=== PATIENT | female | born 2000 | race Caucasian/White ===

== ENCOUNTER → 2020-01-22 11:42 | Outpatient (BNVA) | payer MEDICAID, SELFPAY | PROVIDERS: Visit Provider Nurse Practitioner | DX: J02.9 Acute pharyngitis, unspecified (principal); R05 Cough | CPT/HCPCS: 87804 ==

== ENCOUNTER 2020-08-20 21:37 | Emergency (ER) | payer MEDICAID, SELFPAY ==
[2020-08-20 21:43] VITALS: BP 135/81; PULSE 71; RESP 16; TEMP 36.5; O2SAT 100; BMI 19.5
--- NOTE | 2020-08-20 21:52 | W.ED.TRAUMA ---
HPI - Trauma General: Chief Complaint: Trauma Stated Complaint: foot injury Time Seen by Provider: 08/20/20 21:50 Source: patient Mode of arrival: ambulatory Limitations: no limitations History of Present Illness: HPI narrative: Patient was getting out of the shower and in the shower door came back and caught her against her left inner heel area. Patient has a 2 cm laceration to the medial left heel area. Review of Systems General: Reports: 10 or more systems reviewed and unremarkable except in HPI and below Skin/Breast: Reports: other (Left heel laceration) PFS ED PFSH: Social History (Updated 01/22/20 @ 11:38 by Radhika Kenndey LPN) Smoking and tobacco status: never smoked Female Reproductive History: Date of last menstrual period: 08/04/20 Physical Exam Const: COMMON NORMALS: no acute distress and patient oriented x3 GENERAL APPEARANCE: cooperative HENMT: COMMON NORMALS: normocephalic and Normal external nose present HEAD & SCALP: normal to inspection and normocephalic NOSE: Normal external nose present MOUTH: Normal oral and palatal mucosa present Eye: GENERAL EYE: appearance normal, both eyes and all related structures Neck/C-Spine: COMMON NORMALS: full ROM Chest: COMMONS NORMALS: normal inspection of the chest Resp: COMMON NORMALS: normal respiratory effort EFFORT & INSPECTION: Yes able to speak in complete sentences Cardio: COMMON NORMALS: regular rate and regular rhythm RATE: regular rate RHYTHM: regular rhythm GI: COMMON NORMALS: non-tender Back/Pelvis: COMMON NORMALS: thoracic and lumbar spine normal to inspection Extremity: COMMON NORMALS: normal to inspection Neuro: COMMON NORMALS: patient oriented x3 and moves all extremities Psych: COMMON NORMALS: mental status grossly normal and cooperative Skin: NARRATIVE SKIN EXAM: 2 cm laceration to left heel, Procedures Laceration Laceration 1: Site: lower extremity (left heel) Side (If applicable): left Size (cm): 2 Description: linear Depth: simple, single layer Local Anesthetic: lidocaine 1% Amount of anesthesia used (mL): 4 Pre-repair: wound explored Skin layer closed with: nylon Size (cm): 4-0 Number of sutures: 3 Technique: simple, interrupted MDM - Trauma MDM Narrative: Medical decision making narrative: Patient comes in with injury to the left heel. On exam there is a 2 cm laceration to the left inner heel. No signs of foreign body was noted. No tendon injury was noted. There was some mild ecchymosis to the surrounding tissue. Differential diagnosis includes contusion, laceration, need for prophylaxis tetanus. Patient's tetanus shot was up-to-date. Wound was closed with 3 sutures. Patient tolerated well. Patient was covered cephalexin. Discharge Plan Discharge Patient Disposition: Home Clinical Impression: Laceration of heel without complication Qualifiers: Encounter type: initial encounter Laterality: left Qualified Code(s): S91.312A - Laceration without foreign body, left foot, initial encounter Condition: Stable Prescriptions: New cephalexin 500 mg tablet 500 mg PO BID 7 Days Qty: 14 RF: 0 No Action control PO RF: 0 Discharge Orders: Discharge Order (Routine); Ordered 08/20/20 Ordered By: Rhett David Discharge Diet: Usual diet Discharge Activity: Increase activity as tolerated Patient Instructions: Suture Care (ED) Activity Restrictions/Additional Instructions: Home and rest. Keep wound clean and dry. Take antibiotics as directed. Use acetaminophen or ibuprofen for pain. Follow-up with primary care for suture removal in 7 to 10 days. Return to the emergency department for new concerns. Coding Level of Care Code ED Supervisor Solder Making for [place] Exam Comprehensive
[2020-08-20] MEDS: cephALEXin 500 mg Capsule PO (21:57)
[2020-08-20] MEDS: lidocaine 1% INJ 20 mL INJECTION (21:57)
== END 2020-08-20 22:15 | disposition home or self-care (01) ==
PROVIDERS: Emergency Provider Nurse Practitioner Family
DX: S91.312A Laceration without foreign body, left foot, initial encounter (principal); W51.XXXA Accidental striking against or bumped into by another person, initial encounter
CPT/HCPCS: 12001; 12345; 99282; 99283

== ENCOUNTER → 2020-11-24 11:30 | Outpatient (BNVA) | payer MEDICAID, SELFPAY | PROVIDERS: Visit Provider Obstetrics & Gynecology | DX: Z32.01 Encounter for pregnancy test, result positive (principal) | CPT/HCPCS: 81025 ==

== ENCOUNTER → 2020-11-30 16:00 | Outpatient (BNVA) | payer MEDICAID, SELFPAY | PROVIDERS: Visit Provider Obstetrics & Gynecology | DX: O20.9 Hemorrhage in early pregnancy, unspecified (principal) | CPT/HCPCS: 84702; 86850; 86900 ==

== ENCOUNTER → 2021-01-08 15:14 | Outpatient (BNVA) | payer MEDICAID, SELFPAY | PROVIDERS: Visit Provider Obstetrics & Gynecology | DX: Z34.90 Encounter for supervision of normal pregnancy, unspecified, unspecified trimester (principal); Z3A.00 Weeks of gestation of pregnancy not specified | CPT/HCPCS: 80307; 82950; 84315; 85027; 86592; 86762; 86803; 86850; 86900; 87086; 87340; 87806 ==

== ENCOUNTER → 2021-01-18 10:32 | Outpatient (BNVA) | payer MEDICAID, SELFPAY | PROVIDERS: Visit Provider Obstetrics & Gynecology | DX: O99.341 Other mental disorders complicating pregnancy, first trimester (principal); F41.9 Anxiety disorder, unspecified; F32.9 Major depressive disorder, single episode, unspecified; Z14.1 Cystic fibrosis carrier; Z3A.12 12 weeks gestation of pregnancy; O09.299 Supervision of pregnancy with other poor reproductive or obstetric history, unspecified trimester | CPT/HCPCS: 84315; 87491; 87591; 88175 ==

== ENCOUNTER 2021-02-05 07:21 | Emergency (ER) | payer MEDICAID, SELFPAY ==
[2021-02-05 07:27] VITALS: BP 99/67; PULSE 89; RESP 16; TEMP 36.6; O2SAT 98; BMI 20.3
--- NOTE | 2021-02-05 07:32 | ECG_ITS ---
[facility] Test Date: 2021-02-05 Pat Name: Gay Izquierdo Department: Room: Gender: Female Direct Support Staff Member: : 2000 Requested By: Radha Bowers Order Number: [id number] Rao MD: Laura Samson M.D. Measurements Intervals [place] Rate: 73 P: 59 NM: 141 QRS: 85 QRSD: 85 T: 54 QT: 361 QTc: 399 Interpretive Statements SINUS RHYTHM WITH SINUS ARRHYTHMIA No previous ECG available for comparison Electronically Signed On 02-05-2021 23:11:42 CDT by Laura Samson M.D. [id number]
[2021-02-05 07:33] VITALS: O2SAT 98
[2021-02-05] MEDS: lactated ringers 1,000 ML 999 ML IV (07:42)
[2021-02-05 07:53] LABS: Basophils % 0.3 %; Eosinophils # 0.1 10^3/uL (0.0-0.8); Eosinophils % 0.8 %; Hematocrit 36.2 % (37.0-47.0); Lymphocytes # 1.1 10^3/uL (0.8-4.8); Lymphocytes % 8.8 %; Mean Corpuscular HGB Conc 33.1 g/dL (30.0-36.0); Mean Corpuscular Hemoglobin 30.4 pg (28.0-34.0); Mean Corpuscular Volume 91.6 fL (81-99); Mean Platelet Volume 10.5 fL (7.4-10.4); Monocytes # 0.7 10^3/uL (0.2-0.9); Monocytes % 5.4 %; Neutrophils # 10.08 10^3/uL (1.8-7.7); Neutrophils % 84.4 %; Nucleated Red Blood Cells % 0 %; Platelet Count 155 10^3/cmm (130-400); Red Blood Count 3.95 10^6/uL (4.1-5.3); Red Cell Distribution Width 12.6 % (12.1-15.1)
[2021-02-05 07:55] VITALS: BP 99/67; PULSE 70; RESP 16; O2SAT 100
[2021-02-05 08:18] LABS: Alanine Aminotransferase 12 U/L (0-33); Albumin Level 4.1 g/dL (3.5-5.2); Alkaline Phosphatase 49 IU/L (35-105); Anion Gap 13.1 (5-19); Aspartate Amino Transferase 15 U/L (0-32); Blood Urea Nitrogen 6 mg/dL (6-20); Calcium 9.3 mg/dL (8.5-10.5); Carbon Dioxide 23 mmol/L (22-29); Chloride 103 mmol/L (98-107); Globulin 2.9 g/dL (1.3-4.6); Glomerular Filtration Rate 201.5 mL/min (90-130); Glucose 69 mg/dL (65-115); Magnesium 1.8 mg/dL (1.7-2.3); Osmolality Calculated 276 mOsm/kg (285-295); Potassium 4.1 mmol/L (3.5-5.1); Sodium 135 mmol/L (136-145); Total Bilirubin 0.4 mg/dL (0.15-1.2)
--- NOTE | 2021-02-05 08:26 | W.ED.DIZZY ---
HPI - Dizziness General: Chief Complaint: Dizziness Stated Complaint: DIZZY, NEAR SYNCOPE, 15 WKS Time Seen by Provider: 02/05/21 07:29 Source: patient Mode of arrival: ambulatory Limitations: no limitations History of Present Illness: HPI Narrative: 20-year-old female, 15 weeks , presenting to the ED complaining of dizziness on standing, presyncopal symptoms. 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 She has been eating and drinking, has not had too much nausea or vomiting. No fever. No dysuria, abdominal cramping, vaginal bleeding, headache, shortness of breath, . Symptoms get better when she sits down or lays down. This is her 2nd . MD elicited complaint: dizziness, lightheadedness and near syncope Associated symptoms: Denies chills, diaphoresis, nausea or vomiting Review of Systems General: Reports: 10 or more systems reviewed and unremarkable except in HPI and below Const: Denies: fever(s), chills, body aches, change in appetite, night sweats or diaphoresis Eyes: Denies: change in vision ENMT: Denies: odynophagia Resp: Denies: dyspnea, productive cough or pain on inspiration GI: Denies: abdominal pain, nausea or vomiting : Denies: dysuria, urinary frequency or urinary hesitancy PFS ED PFSH: Medical History Anxiety and depression Diagnosed at the age of 13 and has been on and off different medications in the past. Was on Prozac and BuSpar prior to the start of the and self discontinued the Prozac and is currently just on BuSpar. This was being managed by her primary care provider. She does not have a therapist or psychiatrist. No pertinent past medical history Denies diabetes, asthma, hypertension, seizures, DVT/PE. PCP: Norah Richard Surgical History No pertinent past surgical history Family History Denies family history of Colon cancer Ovarian cancer Diabetes Heart disease Hypercholesteremia Breast cancer Hypertension Uterine cancer Thyroid disease Stroke Female Reproductive History: Date of last menstrual period: 10/20/20 Physical Exam Const: COMMON NORMALS: no acute distress, patient oriented x3, healthy appearing and alert GENERAL APPEARANCE: cooperative and comfortable; not in distress, not anxious, not combative and not ill appearing NUTRITIONAL APPEARANCE: underweight ORIENTATION/CONSCIOUSNESS: Yes awake HENMT: COMMON NORMALS: normocephalic and atraumatic HEAD & SCALP: normocephalic and atraumatic FACE & SINUS: normal facial exam and face symmetric Eye: COMMON NORMALS: Equal, round and reactive pupils present, EOMs intact bilaterally, conjunctivae normal and no scleral icterus CONJUNCTIVA: Yes conjunctivae normal PUPIL: Yes Equal, round and reactive pupils present Neck/C-Spine: COMMON NORMALS: full ROM, no lymphadenopathy and supple Resp: COMMON NORMALS: normal respiratory effort, No retractions and No use of accessory muscles GI: COMMON NORMALS: Soft to palpation INSPECTION: Yes normal to inspection PALPATION: Yes Soft to palpation, No Tenderness to palpation present (GI), No Guarding due to palpation present (GI) and No Rigid due to palpation Extremity: COMMON NORMALS: normal to inspection, full ROM and capillary refill normal Neuro: NAMAN COMA SCALE: document GCS findings COMMON NORMALS: patient oriented x3 SENSORIUM/ORIENTATION: Yes alert SPEECH: speech normal GAIT: Yes Normal gait present Psych: COMMON NORMALS: mental status grossly normal and Normal thought process present THOUGHT PROCESS: Normal thought process present Skin: COMMON NORMALS: no rashes or lesions noted, no wounds and turgor normal GENERAL SKIN EXAM: no rashes or lesions noted and turgor normal Course Vital Signs: Vital signs: Vital Signs Temperature 97.9 F 02/05/21 07:27 Pulse Rate 68 02/05/21 10:17 Respiratory Rate 18 02/05/21 10:17 Blood Pressure 104/62 02/05/21 10:17 Pulse Oximetry 99 02/05/21 10:17 MDM - Dizziness MDM Narrative: Medical decision making narrative: 20-year-old female, per 15 weeks , with orthostatic dizziness and presyncope symptoms. No other concerning signs or symptoms on exam or history. She felt better after a fluid bolus, we discussed the importance of drinking lots of fluids during this stage of as she is is in a relatively hypovolemic state. UA did not suggest acute UTI-heavily contaminated. Recommended that she call her OB and schedule follow-up appointment next week. Return precautions discussed. Differential Diagnosis: Dizziness Differential Diagnosis: Likely orthostatic hypotension Lab Data: Attestation: I reviewed the patient's lab results. Labs: Lab Results 02/05/21 02/05/21 02/05/21 Range/Units 07:30 07:30 07:30 WBC 12.0 H (4.0-10.0) 10^3/ uL RBC 3.95 L (4.1-5.3) 10^6/u L Hgb 12.0 (11.5-15.3) g/dL Hct 36.2 L (37.0-47.0) % MCV 91.6 (81-99) fL MCH 30.4 (28.0-34.0) pg MCHC 33.1 (30.0-36.0) g/dL RDW 12.6 (12.1-15.1) % Plt Count 155 (130-400) 10^3/c mm MPV 10.5 H (7.4-10.4) fL Neut % (Auto) 84.4 % Lymph % (Auto) 8.8 % Clinch % (Auto) 5.4 % Eos % (Auto) 0.8 % Baso % (Auto) 0.3 % Neut # (Auto) 10.08 H (1.8-7.7) 10^3/u L Lymph # (Auto) 1.1 (0.8-4.8) 10^3/u L Clinch # (Auto) 0.7 (0.2-0.9) 10^3/u L Eos # (Auto) 0.1 (0.0-0.8) 10^3/u L Baso # (Auto) 0.0 (0.0-0.1) 10^3/u L Nucleated RBC % (a uto) 0 % Nucleated RBCs # 0.0 /100WBC Sodium 135 L (136-145) mmol/L Potassium 4.1 (3.5-5.1) mmol/L Chloride 103 (98-107) mmol/L Carbon Dioxide 23 (22-29) mmol/L Anion Gap 13.1 (5-19) BUN 6 (6-20) mg/dL Creatinine 0.4 L (0.5-0.9) mg/dL GFR Calculation 201.5 H (90-130) mL/min Glucose 69 (65-115) mg/dL Calculated Osmolal ity 276 L (285-295) mOsm/k g Calcium 9.3 (8.5-10.5) mg/dL Magnesium 1.8 (1.7-2.3) mg/dL Total Bilirubin 0.4 (0.15-1.2) mg/dL AST 15 (0-32) U/L ALT 12 (0-33) U/L Alkaline Phosphata se 49 (35-105) IU/L Total Protein 7.0 (6.6-8.7) g/dL Albumin 4.1 (3.5-5.2) g/dL Globulin 2.9 (1.3-4.6) g/dL Urine Color Yellow (Yellow) Urine Appearance Sl hazy (CLEAR) Urine pH 8.5 H (5-7) Ur Specific Gravit y 1.015 (1.005-1.030) Urine Protein Neg (Negative) Urine Glucose (UA) Norm (Normal) Urine Ketones Negative (Negative) Urine Blood Trace H (Negative) Urine Nitrate Negative (Negative) Urine Bilirubin Neg (Negative) Prot Sulfosalicyli c Acd Negative (Negative) Urine Urobilinogen Norm (Negative) mg/dL Ur Leukocyte Rochelle ase 2+ H (Negative) Urine RBC 0-4 H (0-2) /hpf Urine WBC 25-40 H (0-5) /hpf Ur Squamous Epith Cells 80-100 H (0-5) /hpf Amorphous Sediment Not Reportable Urine Bacteria 2+ H (NONE) /hpf Urine Mucus Trace /hpf Discharge Plan Discharge Patient Disposition: Home Clinical Impression: Orthostatic hypotension Condition: Stable Prescriptions: No Action buspirone 5 mg tablet 10 mg PO TID RF: 0 prenat.vits,ashok,[id number] Tablet 1 tab PO DAILY RF: 0 Discharge Orders: Discharge ED (Routine); Ordered 02/05/21 Ordered By: Radha Bowers Discharge Diet: Advance as tolerated Discharge Activity: Resume usual activity Patient Instructions: Lightheadedness (ED) Activity Restrictions/Additional Instructions: Make sure to drink plenty of fluids. Rest, make sure to get up slowly after you have been laying down. Call your BUSINESS [facility]ELOPMENT today to schedule follow-up. Return immediately to the ER if develop fever, abdominal pain, nausea, vomiting, cramping, vaginal bleeding, or any other concerning symptoms. Coding Level of Care Code ED Tape Recorder Mechanic for [place]
[2021-02-05 08:40] LABS: Add Urine Culture? No; Add Urine Microscopic? YES; Bacteria Urine 2+ /hpf; Bilirubin Urine Neg (Negative); Blood Urine Trace (Negative); Glucose Urine UA Norm (Normal); Ketones Urine Negative (Negative); Leukocyte Esterase Urine 2+ (Negative); Mucus Urine TRACE /hpf; Nitrate Urine Negative (Negative); Protein Urine Neg (Negative); RBC Urine 0-4 /hpf (0-2); Specific Gravity, Urine 1.015 (1.005-1.030); Squamous Epithelial Cell Urine 80-100 /hpf (0-5); Sulfosalicylic Acid Urine Negative (Negative); Urine Appearance SL Hazy (CLEAR); Urine Color Yellow (Yellow); Urobilinogen Urine Norm (Negative); WBC Urine 25-40 /hpf (0-5); pH Urine 8.5 (5-7)
[2021-02-05 09:00] VITALS: BP 108/65; BP 109/61; PULSE 66; PULSE 67; RESP 16; O2SAT 96; O2SAT 98
[2021-02-05 10:00] VITALS: BP 104/62; PULSE 68; RESP 18; O2SAT 99
[2021-02-05 10:17] VITALS: BP 104/62; PULSE 68; RESP 18; O2SAT 99
== END 2021-02-05 10:18 | disposition home or self-care (01) ==
PROVIDERS: Emergency Provider Family Medicine
DX: I95.1 Orthostatic hypotension (principal)
CPT/HCPCS: 80053; 81001; 83735; 85025; 93005; 96360; 99283

== ENCOUNTER 2021-04-05 09:00 | Emergency (ER) | payer MEDICAID, SELFPAY ==
[2021-04-05 09:08] VITALS: BP 122/71; PULSE 88; RESP 17; TEMP 36.7; O2SAT 99; BMI 23.3
--- NOTE | 2021-04-05 09:12 | W.ED.ABDPA2 ---
Documented by User: Leah Amrit 04/05/21 11:55 HPI - Abdominal Pain General: Chief Complaint: Abdominal Pain Stated Complaint: 24 weeks preg, N/V Time Seen by Provider: 04/05/21 09:01 Source: patient Mode of arrival: ambulatory Limitations: no limitations History of Present Illness: HPI narrative: Jairo is a 20-year-old female 2 para 1 approximately 24 weeks gestational age. She states today she has had nausea vomiting and has been unable to hold down any fluids. Denies any vaginal bleeding or loss of water. No contractions. Denies any falls or abdominal trauma. She is taking a vitamin daily. She had an OB ultrasound at 20 weeks which showed a male gestation. Dr. Hurtado is her OB. MD elicited complaint: other (Nausea/vomiting in . Mild dysuria) Pertinent past history: none Onset (ago): day(s) (1) Radiation: none Associated Symptoms: Reports dysuria, nausea and vomiting; Denies chills, coffee ground emesis, fever(s), hematochezia and hematemesis Related Data: Date of Last Menstrual Period: 10/20/20 Patient : Yes (24w) Review of Systems Const: Denies: fever(s) or chills ENMT: Denies: throat pain Card: Denies: chest pain Resp: Denies: dyspnea GI: Reports: nausea and vomiting; Denies: hematemesis, coffee ground emesis, rectal pain or hematochezia : Reports: dysuria and urinary frequency Musc: Denies: neck pain Neuro: Denies: headache(s) PFSH ED PFSH: Medical History Anxiety and depression Diagnosed at the age of 13 and has been on and off different medications in the past. Was on Prozac and BuSpar prior to the start of the and self discontinued the Prozac and is currently just on BuSpar. This was being managed by her primary care provider. She does not have a therapist or psychiatrist. No pertinent past medical history Denies diabetes, asthma, hypertension, seizures, DVT/PE. PCP: Norah Richard Surgical History No pertinent past surgical history Family History Denies family history of Colon cancer Ovarian cancer Diabetes Heart disease Hypercholesteremia Breast cancer Hypertension Uterine cancer Thyroid disease Stroke Female Reproductive History: Date of last menstrual period: 10/20/20 Physical Exam Const: COMMON NORMALS: no acute distress and patient oriented x3 GENERAL APPEARANCE: cooperative HENMT: COMMON NORMALS: normocephalic HEAD & SCALP: normocephalic Eye: COMMON NORMALS: Equal, round and reactive pupils present PUPIL: Yes Equal, round and reactive pupils present Neck/C-Spine: COMMON NORMALS: full ROM Resp: COMMON NORMALS: normal respiratory effort and clear to auscultation bilaterally EFFORT & INSPECTION: Yes able to speak in complete sentences AUSCULTATION: clear to auscultation bilaterally Cardio: COMMON NORMALS: regular rate and regular rhythm RATE: regular rate RHYTHM: regular rhythm GI: COMMON NORMALS: Normal to inspection, nondistended, normoactive bowel sounds present and Soft to palpation INSPECTION: Yes normal to inspection and Yes gravid abdomen AUSCULTATION: Yes normoactive bowel sounds PALPATION: Yes Soft to palpation, No Guarding due to palpation present (GI) and No Rigid due to palpation Extremity: COMMON NORMALS: normal to inspection and full ROM Neuro: COMMON NORMALS: patient oriented x3 and moves all extremities Skin: COMMON NORMALS: no rashes or lesions noted GENERAL SKIN EXAM: no rashes or lesions noted Course ED course: IV fluids, Zofran, labs and urine analysis ordered. 1022: Patient reassessed and is complaining of belly pain. Will get OB ultrasound. OB ultrasound shows no subchorionic hemorrhage. Live IUP with heart rate and appropriate movement. No gallstones noted. Mild dilation of the right renal pelvis but no obvious obstruction. We will discharge patient home on nausea medicine and have her take [id number] Tylenol for pain. Advised her to follow-up with her OB in [address] Hurtado's office contacted. Recommend Phenergan for nausea. Would like patient to call on Monday to check in. Vital Signs: Vital signs: Vital Signs Temperature 98.0 F 04/05/21 09:08 Pulse Rate 91 04/05/21 12:19 Respiratory Rate 18 04/05/21 12:19 Blood Pressure 101/53 04/05/21 12:19 Pulse Oximetry 100 04/05/21 12:19 MDM - Abdominal Pain Differential Diagnosis: Differential diagnosis abdominal pain: Likely gastroenteritis Medical Records: Attestation: I reviewed the patient's medical records. Lab Data: Attestation: I reviewed the patient's lab results. Labs: Lab Results 04/05/21 04/05/21 04/05/21 Range/Units 09:30 09:30 09:30 WBC 15.3 H (4.0-10.0) 10^3/ uL RBC 4.42 (4.1-5.3) 10^6/u L Hgb 13.8 (11.5-15.3) g/dL Hct 40.9 (37.0-47.0) % MCV 92.5 (81-99) fL MCH 31.2 (28.0-34.0) pg MCHC 33.7 (30.0-36.0) g/dL RDW 12.9 (12.1-15.1) % Plt Count 182 (130-400) 10^3/c mm MPV 10.4 (7.4-10.4) fL Neut % (Auto) 90.8 % Lymph % (Auto) 4.1 % Scurry % (Auto) 3.5 % Eos % (Auto) 0.6 % Baso % (Auto) 0.4 % Neut # (Auto) 13.88 H (1.8-7.7) 10^3/u L Lymph # (Auto) 0.6 L (0.8-4.8) 10^3/u L Scurry # (Auto) 0.5 (0.2-0.9) 10^3/u L Eos # (Auto) 0.1 (0.0-0.8) 10^3/u L Baso # (Auto) 0.1 (0.0-0.1) 10^3/u L Nucleated RBC % (a uto) 0 % Nucleated RBCs # 0.0 /100WBC Sodium 138 (136-145) mmol/L Potassium 4.1 (3.5-5.1) mmol/L Chloride 106 (98-107) mmol/L Carbon Dioxide 22 (22-29) mmol/L Anion Gap 14.1 (5-19) BUN 9 (6-20) mg/dL Creatinine 0.4 L (0.5-0.9) mg/dL GFR Calculation 201.5 H (90-130) mL/min Glucose 89 (65-115) mg/dL Calculated Osmolal ity 284 L (285-295) mOsm/k g Calcium 8.1 L (8.5-10.5) mg/dL Total Bilirubin 0.3 (0.15-1.2) mg/dL AST 15 (0-32) U/L ALT 12 (0-33) U/L Alkaline Phosphata se 89 (35-105) IU/L Total Protein 7.4 (6.6-8.7) g/dL Albumin 3.9 (3.5-5.2) g/dL Globulin 3.5 (1.3-4.6) g/dL HCG, Qual Positive H (Negative) Urine Color (Yellow) Urine Appearance (CLEAR) Urine pH (5-7) Ur Specific Gravit y (1.005-1.030) Urine Protein (Negative) Urine Glucose (UA) (Normal) Urine Ketones (Negative) Urine Blood (Negative) Urine Nitrate (Negative) Urine Bilirubin (Negative) Urine Urobilinogen (Negative) mg/dL Ur Leukocyte Rochelle ase (Negative) 04/05/21 Range/Units 09:30 WBC (4.0-10.0) 10^3/ uL RBC (4.1-5.3) 10^6/u L Hgb (11.5-15.3) g/dL Hct (37.0-47.0) % MCV (81-99) fL MCH (28.0-34.0) pg MCHC (30.0-36.0) g/dL RDW (12.1-15.1) % Plt Count (130-400) 10^3/c mm MPV (7.4-10.4) fL Neut % (Auto) % Lymph % (Auto) % Scurry % (Auto) % Eos % (Auto) % Baso % (Auto) % Neut # (Auto) (1.8-7.7) 10^3/u L Lymph # (Auto) (0.8-4.8) 10^3/u L Scurry # (Auto) (0.2-0.9) 10^3/u L Eos # (Auto) (0.0-0.8) 10^3/u L Baso # (Auto) (0.0-0.1) 10^3/u L Nucleated RBC % (a uto) % Nucleated RBCs # /100WBC Sodium (136-145) mmol/L Potassium (3.5-5.1) mmol/L Chloride (98-107) mmol/L Carbon Dioxide (22-29) mmol/L Anion Gap (5-19) BUN (6-20) mg/dL Creatinine (0.5-0.9) mg/dL GFR Calculation (90-130) mL/min Glucose (65-115) mg/dL Calculated Osmolal ity (285-295) mOsm/k g Calcium (8.5-10.5) mg/dL Total Bilirubin (0.15-1.2) mg/dL AST (0-32) U/L ALT (0-33) U/L Alkaline Phosphata se (35-105) IU/L Total Protein (6.6-8.7) g/dL Albumin (3.5-5.2) g/dL Globulin (1.3-4.6) g/dL HCG, Qual (Negative) Urine Color Yellow (Yellow) Urine Appearance Clear (CLEAR) Urine pH 6.5 (5-7) Ur Specific Gravit y 1.015 (1.005-1.030) Urine Protein Neg (Negative) Urine Glucose (UA) Norm (Normal) Urine Ketones Negative (Negative) Urine Blood Neg (Negative) Urine Nitrate Negative (Negative) Urine Bilirubin 1+ H (Negative) Urine Urobilinogen Norm (Negative) mg/dL Ur Leukocyte Rochelle ase Negative (Negative) Imaging Data ^: US OB: Attestation: I personally reviewed and interpreted this imaging study as follows: My impression: Live IUP with a heart rate of 144 bpm. Mild dilation of the right renal pelvis. No evidence of abruption or subchorionic hemorrhage. Appropriate movement. Discharge Plan Discharge Patient Disposition: Home Clinical Impression: Nausea and vomiting during Condition: Stable Prescriptions: New promethazine 25 mg tablet 25 mg PO TID Qty: 15 RF: 0 No Action buspirone 10 mg tablet 10 mg PO TID PRN (Reason: Anxiety) RF: 0 Multivitamins 28 mg iron- 800 mcg Tablet 1 tab PO DAILY RF: 0 Discharge Orders: Discharge ED (Routine); Ordered 04/05/21 Ordered By: Leah Marcus Discharge Diet: Advance as tolerated and Clear Liquid Discharge Activity: Resume usual activity Patient Instructions: Opioid Safety Activity Restrictions/Additional Instructions: Use nausea medication as needed as directed. Hydration is most important. Drink Pedialyte or half Gatorade/half water for hydration. Call your OBs office on Monday and give them an update. Return if any problems. Use [id number] Tylenol as needed as directed by package instructions for pain. Lay on your left side intermittently to relieve pressure off of your right kidney. Coding Level of Care Code ED Marketing Representative for Chg Fwd Exam Comprehensive Documented by User: Ralph Echeverria DO 04/06/21 12:42 HPI - Abdominal Pain General: Chief Complaint: Abdominal Pain Stated Complaint: 24 weeks preg, N/V Time Seen by Provider: 04/05/21 09:01 [facility] ED PFSH: Medical History Anxiety and depression Diagnosed at the age of 13 and has been on and off different medications in the past. Was on Prozac and BuSpar prior to the start of the and self discontinued the Prozac and is currently just on BuSpar. This was being managed by her primary care provider. She does not have a therapist or psychiatrist. No pertinent past medical history Denies diabetes, asthma, hypertension, seizures, DVT/PE. PCP: Norah Richard Surgical History No pertinent past surgical history Family History Denies family history of Colon cancer Ovarian cancer Diabetes Heart disease Hypercholesteremia Breast cancer Hypertension Uterine cancer Thyroid disease Stroke Course Vital Signs: Vital signs: Vital Signs Temperature 98.0 F 04/05/21 09:08 Pulse Rate 91 04/05/21 12:19 Respiratory Rate 18 04/05/21 12:19 Blood Pressure 101/53 04/05/21 12:19 Pulse Oximetry 100 04/05/21 12:19 MDM - Abdominal Pain MDM Narrative: Medical decision making narrative: Discussed and reviewed case with nurse practitioner Ewa Marcus. Agree with assessment and plan. Lab Data: Labs: Lab Results 04/05/21 04/05/21 04/05/21 Range/Units 09:30 09:30 09:30 WBC 15.3 H (4.0-10.0) 10^3/ uL RBC 4.42 (4.1-5.3) 10^6/u L Hgb 13.8 (11.5-15.3) g/dL Hct 40.9 (37.0-47.0) % MCV 92.5 (81-99) fL MCH 31.2 (28.0-34.0) pg MCHC 33.7 (30.0-36.0) g/dL RDW 12.9 (12.1-15.1) % Plt Count 182 (130-400) 10^3/c mm MPV 10.4 (7.4-10.4) fL Neut % (Auto) 90.8 % Lymph % (Auto) 4.1 % Scurry % (Auto) 3.5 % Eos % (Auto) 0.6 % Baso % (Auto) 0.4 % Neut # (Auto) 13.88 H (1.8-7.7) 10^3/u L Lymph # (Auto) 0.6 L (0.8-4.8) 10^3/u L Scurry # (Auto) 0.5 (0.2-0.9) 10^3/u L Eos # (Auto) 0.1 (0.0-0.8) 10^3/u L Baso # (Auto) 0.1 (0.0-0.1) 10^3/u L Nucleated RBC % (a uto) 0 % Nucleated RBCs # 0.0 /100WBC Sodium 138 (136-145) mmol/L Potassium 4.1 (3.5-5.1) mmol/L Chloride 106 (98-107) mmol/L Carbon Dioxide 22 (22-29) mmol/L Anion Gap 14.1 (5-19) BUN 9 (6-20) mg/dL Creatinine 0.4 L (0.5-0.9) mg/dL GFR Calculation 201.5 H (90-130) mL/min Glucose 89 (65-115) mg/dL Calculated Osmolal ity 284 L (285-295) mOsm/k g Calcium 8.1 L (8.5-10.5) mg/dL Total Bilirubin 0.3 (0.15-1.2) mg/dL AST 15 (0-32) U/L ALT 12 (0-33) U/L Alkaline Phosphata se 89 (35-105) IU/L Total Protein 7.4 (6.6-8.7) g/dL Albumin 3.9 (3.5-5.2) g/dL Globulin 3.5 (1.3-4.6) g/dL HCG, Qual Positive H (Negative) Urine Color (Yellow) Urine Appearance (CLEAR) Urine pH (5-7) Ur Specific Gravit y (1.005-1.030) Urine Protein (Negative) Urine Glucose (UA) (Normal) Urine Ketones (Negative) Urine Blood (Negative) Urine Nitrate (Negative) Urine Bilirubin (Negative) Urine Urobilinogen (Negative) mg/dL Ur Leukocyte Rochelle ase (Negative) 04/05/21 Range/Units 09:30 WBC (4.0-10.0) 10^3/ uL RBC (4.1-5.3) 10^6/u L Hgb (11.5-15.3) g/dL Hct (37.0-47.0) % MCV (81-99) fL MCH (28.0-34.0) pg MCHC (30.0-36.0) g/dL RDW (12.1-15.1) % Plt Count (130-400) 10^3/c mm MPV (7.4-10.4) fL Neut % (Auto) % Lymph % (Auto) % Scurry % (Auto) % Eos % (Auto) % Baso % (Auto) % Neut # (Auto) (1.8-7.7) 10^3/u L Lymph # (Auto) (0.8-4.8) 10^3/u L Scurry # (Auto) (0.2-0.9) 10^3/u L Eos # (Auto) (0.0-0.8) 10^3/u L Baso # (Auto) (0.0-0.1) 10^3/u L Nucleated RBC % (a uto) % Nucleated RBCs # /100WBC Sodium (136-145) mmol/L Potassium (3.5-5.1) mmol/L Chloride (98-107) mmol/L Carbon Dioxide (22-29) mmol/L Anion Gap (5-19) BUN (6-20) mg/dL Creatinine (0.5-0.9) mg/dL GFR Calculation (90-130) mL/min Glucose (65-115) mg/dL Calculated Osmolal ity (285-295) mOsm/k g Calcium (8.5-10.5) mg/dL Total Bilirubin (0.15-1.2) mg/dL AST (0-32) U/L ALT (0-33) U/L Alkaline Phosphata se (35-105) IU/L Total Protein (6.6-8.7) g/dL Albumin (3.5-5.2) g/dL Globulin (1.3-4.6) g/dL HCG, Qual (Negative) Urine Color Yellow (Yellow) Urine Appearance Clear (CLEAR) Urine pH 6.5 (5-7) Ur Specific Gravit y 1.015 (1.005-1.030) Urine Protein Neg (Negative) Urine Glucose (UA) Norm (Normal) Urine Ketones Negative (Negative) Urine Blood Neg (Negative) Urine Nitrate Negative (Negative) Urine Bilirubin 1+ H (Negative) Urine Urobilinogen Norm (Negative) mg/dL Ur Leukocyte Rochelle ase Negative (Negative) Discharge Plan Discharge Patient Disposition: Home Clinical Impression: Nausea and vomiting during Condition: Stable Prescriptions: New promethazine 25 mg tablet 25 mg PO TID Qty: 15 RF: 0 No Action buspirone 10 mg tablet 10 mg PO TID PRN (Reason: Anxiety) RF: 0 Multivitamins 28 mg iron- 800 mcg Tablet 1 tab PO DAILY RF: 0 Discharge Orders: Discharge ED (Routine); Ordered 04/05/21 Ordered By: Leah Marcus Discharge Diet: Advance as tolerated and Clear Liquid Discharge Activity: Resume usual activity Patient Instructions: Opioid Safety Activity Restrictions/Additional Instructions: Use nausea medication as needed as directed. Hydration is most important. Drink Pedialyte or half Gatorade/half water for hydration. Call your OBs office on Monday and give them an update. Return if any problems. Use [id number] Tylenol as needed as directed by package instructions for pain. Lay on your left side intermittently to relieve pressure off of your right kidney. Coding Level of Care Code ED Marketing Representative for [place] Exam Comprehensive
[2021-04-05] MEDS: sodium chloride 0.9% 1,000 ML 999 ML IV (09:35)
[2021-04-05] MEDS: ondansetron 2 mg/ML SDV 2 mL 4 MG IVP (09:38)
[2021-04-05 09:39] LABS: Basophils # 0.1 10^3/uL (0.0-0.1); Basophils % 0.4 %; Eosinophils # 0.1 10^3/uL (0.0-0.8); Eosinophils % 0.6 %; Hematocrit 40.9 % (37.0-47.0); Hemoglobin 13.8 g/dL (11.5-15.3); Lymphocytes # 0.6 10^3/uL (0.8-4.8); Lymphocytes % 4.1 %; Mean Corpuscular HGB Conc 33.7 g/dL (30.0-36.0); Mean Corpuscular Hemoglobin 31.2 pg (28.0-34.0); Mean Corpuscular Volume 92.5 fL (81-99); Mean Platelet Volume 10.4 fL (7.4-10.4); Monocytes # 0.5 10^3/uL (0.2-0.9); Monocytes % 3.5 %; Neutrophils # 13.88 10^3/uL (1.8-7.7); Neutrophils % 90.8 %; Nucleated Red Blood Cells % 0 %; Platelet Count 182 10^3/cmm (130-400); Red Blood Count 4.42 10^6/uL (4.1-5.3); Red Cell Distribution Width 12.9 % (12.1-15.1); White Blood Count 15.3 10^3/uL (4.0-10.0)
[2021-04-05 09:41] LABS: HCG Qualitative Urine. Positive (Negative)
[2021-04-05 09:55] LABS: Alanine Aminotransferase 12 U/L (0-33); Albumin Level 3.9 g/dL (3.5-5.2); Alkaline Phosphatase 89 IU/L (35-105); Anion Gap 14.1 (5-19); Aspartate Amino Transferase 15 U/L (0-32); Blood Urea Nitrogen 9 mg/dL (6-20); Calcium 8.1 mg/dL (8.5-10.5); Carbon Dioxide 22 mmol/L (22-29); Chloride 106 mmol/L (98-107); Globulin 3.5 g/dL (1.3-4.6); Glomerular Filtration Rate 201.5 mL/min (90-130); Glucose 89 mg/dL (65-115); Osmolality Calculated 284 mOsm/kg (285-295); Potassium 4.1 mmol/L (3.5-5.1); Sodium 138 mmol/L (136-145); Total Bilirubin 0.3 mg/dL (0.15-1.2); Total Protein 7.4 g/dL (6.6-8.7)
--- NOTE | 2021-04-05 10:19 | US_ITS ---
WS: [id number] ULTRASOUND EARLY TECHNIQUE: Transabdominal sonography of the pelvis was performed. CLINICAL INFORMATION: abdominal pain during LMP: 10/22/2020 Beta hCG: Unknown. COMPARISON: None. FINDINGS: UTERUS AND GESTATIONAL SAC Intrauterine gestations: Single live intrauterine . Cervix is closed measuring 4.7 CM. Placenta is posterior. Mild hy dronephrosis right kidney. Normal adnexa. heart motion: 144 BPM. Subchorionic hemorrhage: None. OVARIES Ovaries not well visualized. Prominent varices in the adnexa. No adnexal masses. FREE FLUID None. US/US OB limited [id number] IMPRESSION: 1. Single live intrauterine . 2. Estimated gestational age; 23 weeks 4 days 3. Cervix is closed measuring 4.7 cm 4. No adnexal masses
[2021-04-05] MEDS: acetaminophen 500 mg Tablet 1000 MG PO (11:21)
[2021-04-05 11:34] LABS: Add Urine Microscopic? NO; Charge for UA Resulting for Rev
[2021-04-05 11:35] LABS: Urine Appearance Clear (CLEAR); Urine Color Yellow (Yellow); pH Urine 6.5 (5-7)
[2021-04-05 11:36] LABS: Bilirubin Urine 1+ (Negative); Blood Urine Neg (Negative); Glucose Urine UA Norm (Normal); Ketones Urine Negative (Negative); Leukocyte Esterase Urine Negative (Negative); Nitrate Urine Negative (Negative); Protein Urine Neg (Negative); Specific Gravity, Urine 1.015 (1.005-1.030); Urobilinogen Urine Norm (Negative)
[2021-04-05 12:19] VITALS: BP 101/53; PULSE 91; RESP 18; O2SAT 100
== END 2021-04-05 12:21 | disposition home or self-care (01) ==
PROVIDERS: Emergency Provider Physician Assistant
DX: O26.892 Other specified pregnancy related conditions, second trimester (principal); R11.2 Nausea with vomiting, unspecified; Z3A.24 24 weeks gestation of pregnancy
CPT/HCPCS: 76815; 80053; 81003; 81025; 85025; 96361; 96374; 99284; J2405; J7030

== ENCOUNTER → 2021-04-26 15:36 | Outpatient (BNVA) | payer MEDICAID, SELFPAY | PROVIDERS: Visit Provider Nurse Practitioner Family | DX: R30.9 Painful micturition, unspecified (principal) | CPT/HCPCS: 81000; 87086 ==

== ENCOUNTER → 2021-05-11 14:32 | Outpatient (BNVA) | payer MEDICAID, SELFPAY | PROVIDERS: Visit Provider Obstetrics & Gynecology | DX: Z34.90 Encounter for supervision of normal pregnancy, unspecified, unspecified trimester (principal); Z14.1 Cystic fibrosis carrier | CPT/HCPCS: 82950; 84315; 85025 ==

== ENCOUNTER → 2021-07-05 13:21 | Outpatient (BNVA) | payer MEDICAID, SELFPAY | PROVIDERS: Visit Provider Obstetrics & Gynecology | DX: Z34.01 Encounter for supervision of normal first pregnancy, first trimester | CPT/HCPCS: 84315; 87081 ==

== ENCOUNTER 2021-07-22 22:32 | Inpatient (IN) | payer MEDICAID, SELFPAY ==
[2021-07-22 21:18] VITALS: BP 117/81; PULSE 86
[2021-07-22 21:22] VITALS: TEMP 36.6
[2021-07-22 22:11] VITALS: RESP 18
[2021-07-22 22:25] LABS: Basophils % 0.2 %; Eosinophils # 0.2 10^3/uL (0.0-0.8); Eosinophils % 1.1 %; Hematocrit 37.7 % (37.0-47.0); Hemoglobin 12.8 g/dL (11.5-15.3); Lymphocytes % 15.4 %; Mean Corpuscular Hemoglobin 31.2 pg (28.0-34.0); Mean Platelet Volume 11.5 fL (7.4-10.4); Monocytes # 0.8 10^3/uL (0.2-0.9); Monocytes % 6.2 %; Neutrophils # 9.94 10^3/uL (1.8-7.7); Neutrophils % 76.1 %; Nucleated Red Blood Cells % 0 %; Platelet Count 175 10^3/cmm (130-400); Red Cell Distribution Width 12.4 % (12.1-15.1); White Blood Count 13.1 10^3/uL (4.0-10.0)
[2021-07-22 22:41] VITALS: BP 109/58; PULSE 74
[2021-07-22] MEDS: lactated ringers 1,000 ML 125 ML IV (22:44)
[2021-07-22] MEDS: ampicillin 2,000 MG in sodium chloride 0.9% (plus) 50 ML 100 MG IV (22:45)
[2021-07-22 23:11] VITALS: BP 103/55; PULSE 72
[2021-07-22 23:41] VITALS: BP 107/51; PULSE 66
[2021-07-23] VITALS (56 sets, daily range): BP systolic 79–142; BP diastolic 40–84; PULSE 54–104; RESP 16; TEMP 36–36.7
[2021-07-23] MEDS: miSOPROStol 100 mcg tablet 25 MCG VAGINAL (00:04)
[2021-07-23] MEDS: ampicillin 1,000 MG in sodium chloride 0.9% (plus) 50 ML 100 MG IV ×2 (02:49→07:34)
[2021-07-23] MEDS: lactated ringers 1,000 ML 125 ML IV (04:35)
[2021-07-23] MEDS: oxytocin 30 UNIT/500 ML BAG IV (04:49)
--- NOTE | 2021-07-23 06:07 | PC.NURSE ---
Dr. Hurtado at patient bedside, reviewed strip. Orders received to continue to increase pitocin, and to increase it at this time.
--- NOTE | 2021-07-23 07:06 | P.HPUD_ITS ---
Labor & Delivery H&P Update Date of Procedure: July 23, 2021 Date H&P Performed: 07/19/21 H&P update information: I have reviewed H&P completed within last 30 days, I have examined patient prior to procedure, No changes to prior documentation and H&P is in [facility] EMR on date indicated Admission Diagnosis:
[2021-07-23] MEDS: lactated ringers 1,000 ML 999 ML IV (07:41)
--- NOTE | 2021-07-23 08:43 | ANES.PREANE2 ---
Pre-Anesthetic Assessment Pre-Anesthetic Assessment: Height/Weight: Height 1.68 m Weight 73.028 kg Temp Pulse Resp BP 97.5 F L 70 18 122/59 07/23/21 07:37 07/23/21 08:40 07/22/21 22:11 07/23/21 08:40 Preop Diagnosis: labor Proposed Procedure: labor epidural Familial anesthetic complications: none Was Beta Shivani taken within 24 hours: N/A Was Clonidine taken within 24 hours: N/A Social: Social History: No alcohol and No tobacco Exam: Pre-Anes Outpt Exam: alert and oriented x 3 Airway: Submandibular: WNL Cervical ROM: WNL History/ROS: No significant history except as noted Pulmonary: Pulmonary: None reported CV/HEM: CV/HEM: None reported : : None reported Hepatic: Hepatic: None reported GI: GI: None reported Metabolic: Metabolic: None reported Musc/skel: Musc/skel: None reported Neuropsych: Neuropsych: None reported Anesthetic Plan: ASA status: 2 Anesthesia: Anesthesia Evaluation Other: epidural Risk of > 500 ml blood loss (7ml/kg in children): No Meds/Allergies Current Medications: Current Medications Generic Name Dose Route Start Last Admin Trade Name Freq PRN Reason Stop Dose Admin Lactated Ringer's 1,000 mls @ 999 m ls/hr 07/22/21 22:02 07/23/21 07:41 Lactated Ringers IV 999 mls/hr .Q1H1M PRN Administration Per L&D Rescitati on Protocol Lactated Ringer's 1,000 mls @ 125 m ls/hr 07/22/21 22:15 07/23/21 04:35 Lactated Ringers IV 125 mls/hr .Q8H DEVORA Administration Dextrose/Lactated Ringer's 1,000 mls @ 125 m ls/hr 07/22/21 22:15 07/22/21 23:09 Dextrose 5%-Lact ated Ringers IV Not Given .Q8H DEVORA Ampicillin Sodium 1,000 mg/ 50 mls @ 100 mls/ hr 07/23/21 02:15 07/23/21 07:57 Sodium Chloride IV Infused Q4H DEVORA Infusion Protocol Oxytocin 30 unit in 500 ml s @ 1 mls/hr 07/23/21 05:15 07/23/21 07:19 Pitocin IV 3 milliunit/min .Q24H DEVORA 3 mls/hr Titration Protocol 1 MILLIUNIT/MIN PFSH Anesthesia PFSH: Medical History Anxiety and depression Diagnosed at the age of 13 and has been on and off different medications in the past. Was on Prozac and BuSpar prior to the start of the and self discontinued the Prozac and is currently just on BuSpar. This was being managed by her primary care provider. She does not have a therapist or psychiatrist. No pertinent past medical history Denies diabetes, asthma, hypertension, seizures, DVT/PE. PCP: Norah Richard Surgical History No pertinent past surgical history Family History Denies family history of Colon cancer Ovarian cancer Diabetes Heart disease Hypercholesteremia Breast cancer Hypertension Uterine cancer Thyroid disease Stroke Female Reproductive History: Date of last menstrual period: 10/20/20 : 2 Data Anesthesia CBC & Chem 7: 07/22/21 22:15 Other Labs: Laboratory Results - last 48 hr 07/22/21 22:15 WBC 13.1 H RBC 4.10 Hgb 12.8 Hct 37.7 MCV 92.0 MCH 31.2 MCHC 34.0 RDW 12.4 Plt Count 175 MPV 11.5 H Neut % (Auto) 76.1 Lymph % (Auto) 15.4 Bledsoe % (Auto) 6.2 Eos % (Auto) 1.1 Baso % (Auto) 0.2 Neut # (Auto) 9.94 H Lymph # (Auto) 2.0 Bledsoe # (Auto) 0.8 Eos # (Auto) 0.2 Baso # (Auto) 0.0 Nucleated RBC % (auto) 0 Nucleated RBCs # 0.0 Cardiac Studies: No Data to Display Anesthesia Procedures Date of Procedure: 07/23/21 Epidural: Time Out Performed: Yes Consents Signed: Procedure Consent Consent: from patient Lumbar Level: L2-L3 Epidural position: sitting Epidural procedure: sterile prep of area, 1% lidocaine to numb the area, 18 g needle, neg for paresthesia, test dose given (3ml), 1.5% xylocaine 1:200k epi, 0.2% Ropivacaine bolus ml (10ml), placed PCEA, no systemic response, sterile dressing applied, L.U.D. no apparent complications and 0.2% Ropiavacaine @ mls/hr (13) Additional Comments: risks and benefits discussed. Patient wishes to proceed. Sterile prep and drape. Attempt .2. Lot [id number] exp 2022-01-18
[2021-07-23] MEDS: lidocaine 2% INJ 20 mL INJECTION (09:13)
--- NOTE | 2021-07-23 09:45 | P.PCNOB_ITS ---
Delivery Note: Date of delivery: July 23, 2021 PRE-DELIVERY DIAGNOSIS: 21-year-old 2 para 1-0-0-1 at 39 weeks and 1 days gestation GBS positive Elective induction of labor COVID-19 antepartum-asymptomatic now History of macrosomia and previous infant-currently Cystic fibrosis carrier POST-DELIVERY DIAGNOSIS: Vaginal delivery on 07/23/2021 PROCEDURE: Vaginal delivery on 07/23/2021 ANESTHESIA: Epidural anesthesia and local anesthesia with 2% lidocaine DELIVERING PHYSICIAN: Sade Hurtado FACJANAE PRE-DELIVERY COURSE: Ms. Izquierdo is a 21-year-old 2 para 1-0-0-1 at 39 weeks and 0 days who presented to labor and delivery at 9 PM on 07/22/2021 for elective induction of labor. History was significant for having Covid during the but she was asymptomatic and GBS positive. On initial exam her cervix was 350-2 unchanged from the office and she had a category 1 tracing with no con tractions. Induction was started at midnight with 1 Cytotec placed and with this she started to have only occasional contractions and had a category 1 tracing. She was started on antibiotics for GBS prophylaxis and received greater than 2 doses of antibiotics. She had no pain. On 07/23/2021 at 4 AM on exam she had made no change although the cervix was soft and she was started on Pitocin titrated to a maximum of 7 mIU. At 6:07 AM artificial rupture of membranes was performed with clear fluid at which time she was 4 to 5 cm, 70% and -2 station of the head was well applied. She grew very uncomfortable after this dose and was turned down to 3 mIU and she had a category 1 tracing and was jess adequately every 2 to 3 minutes. At 7:48 AM she was 7 to 8 cm and feeling a lot of pressure. She requested an epidural and this was placed. At 8:40 AM she was noted to be anterior lip with a lot of pressure and 0 station. She was fully dilated at 8:54 AM and was set up in lithotomy position ready to. DELIVERY NOTE: She was set up in lithotomy position and was pushing effectively. She was noted to be +3 station and continued pushing well. The perineum was tight and a right mediolateral episiotomy was cut after infiltrating the area with 2% lidocaine. Patient tolerated this well. The head delivered in DENISSE position, no nuchal cord was present. The shoulders and rest of the body followed with her next push. The baby's mouth and nose were suctioned and the baby was placed on the mother's belly. Once cord pulsations stopped the cord was clamped and cut. The placenta delivered spontaneously intact with membranes and was discarded. The fundus was noted to be firm and well contracted. The vagina and cervix were inspected and no cervical or sulcal lacerations were noted. The perineum was intact except for the right mediolateral episiotomy which was repaired in the usual fashion without any difficulty. Good hemostasis and reapproximation was obtained. Baby della Anna, born at 9:14 AM on 07/23/2021 with 8/9, weighing 8 pounds 4 ounces, 3745 g, 22 inches long. Placenta was delivered spontaneously intact with membranes at 9:20 AM. Cotyledons were intact , centrally inserted umbilical cord with 3 vessels noted. Estimated blood loss 250 mL. Complications-none, both baby in stable condition. This documentation was created by [employer] steeping press tender software (known for inherent steeping press tender error). Every effort was made to assure accuracy of steeping press tender. Any obvious errors or omissions should be clarified with the author of the document. Coding Level of Care Code Acute Modular Home Crew Member for Chg Fwd History History History 2 Term 2 Miscarriages/Ectopic 0 0 Living Children 2 Other History: 2, Para 2001, x 2 1--> 03/28/2018, male(Dima) , 9lbs 2oz, vaginal delivery, 39 weeks gestation, no complications with or delivery, delivered in [place] 2--> 07/23/2021, male(Wilfrido) weighing 8 pounds 4 ounces, 39 weeks gestation, induction of labor. Right mediolateral episiotomy delivered by Dr. Hurtado at [facility]. No other complications. GBS positive
--- NOTE | 2021-07-23 10:09 | PC.NURSE ---
Baby is latched well and nursing. Mom reports no pain. Mom has recently stopped feeding a 3 year old and has no questions or concerns for this current baby. Provided contact information.
[2021-07-23] MEDS: ibuprofen 800 mg tablet PO ×2 (14:27→21:40)
[2021-07-23] MEDS: benzocaine-menthol 78 gm Canister 1 SPRAY TOPICAL (14:27)
[2021-07-23] MEDS: lanolin oint 7 gm 1 APPLIC TOPICAL (14:28)
[2021-07-23] MEDS: docusate sodium 100 mg Capsule PO (18:01)
[2021-07-23] MEDS: HYDROcodone-acetaminophen 5-325 mg Tablet PO (19:05)
[2021-07-24 00:30] VITALS: BP 114/70; PULSE 72; RESP 16; TEMP 36.6
[2021-07-24] MEDS: HYDROcodone-acetaminophen 5-325 mg Tablet PO ×2 (01:04→11:41)
[2021-07-24 01:31] LABS: Hematocrit 33.4 % (37.0-47.0); Hemoglobin 11.3 g/dL (11.5-15.3); Mean Corpuscular HGB Conc 33.8 g/dL (30.0-36.0); Mean Corpuscular Hemoglobin 31.5 pg (28.0-34.0); Mean Platelet Volume 11.8 fL (7.4-10.4); Platelet Count 171 10^3/cmm (130-400); Red Blood Count 3.59 10^6/uL (4.1-5.3); Red Cell Distribution Width 12.4 % (12.1-15.1); White Blood Count 16.6 10^3/uL (4.0-10.0)
[2021-07-24 04:30] VITALS: BP 101/60; PULSE 70; RESP 16; TEMP 36.8
--- NOTE | 2021-07-24 07:55 | ANE.PACU2 ---
Inpatient post-anesthesia follow up: Airway intact: Yes Vital signs: Temperature 98.0 F Pulse Rate 84 Respiratory Rate 16 Blood Pressure 105/64 Pulse Oximetry Oxygen Delivery Me thod Room Air Oxygen Flow Rate Fraction of Inspir ed Oxygen Hydration adequate: Yes Nausea and vomiting: No Pain level: 2 Mental status: Baseline
[2021-07-24] MEDS: prenatal vitamin Capsule 1 CAP PO (09:28)
[2021-07-24] MEDS: docusate sodium 100 mg Capsule PO (09:28)
[2021-07-24] MEDS: ibuprofen 800 mg tablet PO (09:29)
[2021-07-24 09:32] VITALS: BP 105/64; PULSE 84; RESP 16; TEMP 36.7
--- NOTE | 2021-07-24 10:41 | P.DS_ITS ---
Discharge Providers FIELD PROPERTY LOSS SPECIALIST Date of Admission: 07/22/21 22:32 Date of Discharge: 07/24/21 Attending Provider at Admission: Sade Lin MD Attending Provider at Discharge: Sade Lin MD PRE-DELIVERY DIAGNOSIS: 21-year-old 2 para 1-0-0-1 at 39 weeks and 1 days gestation GBS positive Elective induction of labor COVID-19 antepartum-asymptomatic now History of macrosomia and previous infant-currently Cystic fibrosis carrier POST-DELIVERY DIAGNOSIS: Vaginal delivery on 07/23/2021 PROCEDURE: Vaginal delivery on 07/23/2021 ANESTHESIA: Epidural anesthesia and local anesthesia with 2% lidocaine DELIVERING PHYSICIAN: Sade Hurtado FACOG PRE-DELIVERY COURSE: Ms. Izquierdo is a 21-year-old 2 para 1-0-0-1 at 39 weeks and 0 days who presented to labor and delivery at 9 PM on 07/22/2021 for elective induction of labor. History was significant for having Covid during the but she was asymptomatic and GBS positive. On initial exam her cervix was 350-2 unchanged from the office and she had a category 1 tracing with no contractions. Induction was started at midnight with 1 Cytotec placed and with this she started to have only occasional contractions and had a category 1 tracing. She was started on antibiotics for GBS prophylaxis and received greater than 2 doses of antibiotics. She had no pain. On 07/23/2021 at 4 AM on exam she had made no change although the cervix was soft and she was started on Pitocin titrated to a maximum of 7 mIU. At 6:07 AM artificial rupture of membranes was performed with clear fluid at which time she was 4 to 5 cm, 70% and -2 station of the head was well applied. She grew very uncomfortable after this dose and was turned down to 3 mIU and she had a category 1 tracing and was jess adequately every 2 to 3 minutes. At 7:48 AM she was 7 to 8 cm and feeling a lot of pressure. She requested an epidural and this was placed. At 8:40 AM she was noted to be anterior lip with a lot of pressure and 0 station. She was fully dilated at 8:54 AM and was set up in lithotomy position ready to. DELIVERY NOTE: She was set up in lithotomy position and was pushing effectively. She was noted to be +3 station and continued pushing well. The perineum was tight and a right mediolateral episiotomy was cut after infiltrating the area with 2% lidocaine. Patient tolerated this well. The head delivered in DENISSE position, no nuchal cord was present. The shoulders and rest of the body followed with her next push. The baby's mouth and nose were suctioned and the baby was placed on the mother's belly. Once cord pulsations stopped the cord was clamped and cut. The placenta delivered spontaneously intact with membranes and was discarded. The fundus was noted to be firm and well contracted. The vagina and cervix were inspected and no cervical or sulcal lacerations were noted. The perineum was intact except for the right mediolateral episiotomy which was repaired in the usual fashion without any difficulty. Good hemostasis and reapproximation was obtained. Baby della Anna, born at 9:14 AM on 07/23/2021 with 8/9, weighing 8 pounds 4 ounces, 3745 g, 22 inches long. Placenta was delivered spontaneously intact with membranes at 9:20 AM. Cotyledons were intact , centrally inserted umbilical cord with 3 vessels noted. Estimated blood loss 250 mL. Complications-none, both baby in stable condition. HOSPITAL COURSE: She underwent an uncomplicated vaginal delivery on 07/23/2021. She did well on day 0 and was ambulating well, tolerating regular diet, voiding freely, passing flatus. She was breast-feeding without difficulty and bonding well with her son. Circumcision was done on him on day of life 0 per her request without any difficulty after being cleared by division commander. Pain was well-controlled with by mouth pain medication. She denied nausea, vomiting, fever, chills, shortness of breath, leg pain. She had moderate vaginal bleeding. On day # 1 she continued to do well with stable vital signs and stable hemoglobin at 11.3. She was discharged home on day 1 in a stable condition, as she desired early discharge. Warning signs for endometritis, mastitis, DVT/PE were reviewed with her. Post delivery activity restrictions were also reviewed with her at all her questions were answered to her satisfaction. Depo-Provera was given to her on 07/24/2021 prior to discharge with plan to reassess to see if she wants to continue this for contraception. EXAM AT DISCHARGE: Gen.: No acute distress Heart: S1-S2 heard, regular rate and rhythm Lungs: Clear to auscultation bilaterally Abdomen: Soft, fundus firm below umbilicus, Legs: No calf tenderness, [default value] pedal edema. CONDITION AT DISCHARGE: Stable This documentation was created by [employer] health records technology teacher software (known for inherent health records technology teacher error). Every effort was made to assure accuracy of health records technology teacher. Any obvious errors or omissions should be clarified with the author of the document. Reason for Visit Reason for Visit: Induction Information Peripartum Data: Delivery Method: Vaginal Physical Exam Urinary Catheter Management^: Fuentes: Cath Placed During This Visit: yes, but has since been removed by the nurse Reason for Continuing Indwelling Catheter: Decision to DC Catheter Urinary Catheter Date of Insertion: 07/23/21 Urinary Catheter Time of Insertion: 08:39 Date Urinary Catheter Removed: 07/23/21 Time Urinary Catheter Discontinued: 08:56 Discharge Data Data Completed and Pending: Labs from last 24 hours 07/24/21 01:00 WBC 16.6 H RBC 3.59 L Hgb 11.3 L Hct 33.4 L MCV 93.0 MCH 31.5 MCHC 33.8 RDW 12.4 Plt Count 171 MPV 11.8 H Vitals: Last Vital Signs Temp 98.0 F 07/24/21 09:32 Pulse 84 07/24/21 09:32 Resp 16 07/24/21 09:32 BP 105/64 07/24/21 09:32 Discharge Plan Discharge Patient Disposition: Home Condition: Stable Prescriptions: New hydrocodone-acetaminophen 5-325 mg tablet 1 tab PO Q6H Qty: 10 RF: 0 docusate sodium 100 mg Capsule 100 mg PO BID PRN (Reason: constipation) Qty: 30 RF: 0 ibuprofen 800 mg tablet 800 mg PO Q8H Qty: 30 RF: 0 Continued (DME) breast pump Device See Rx Instructions .Route Qty: 1 RF: 0 PNV cmb#[id number]-ferrous fumarate-FA [ Multivitamins] 28 mg iron- 800 mcg Tablet 1 tab PO DAILY RF: 0 Discharge Orders: Discharge Order (Routine); Ordered 07/24/21 Ordered By: Sade Lin Referrals: Sade Lin MD [Physician] - 09/06/21 9:30 am (Your 6 week post- visit is scheduled for 09/06/21 @9:30.) Patient Instructions: Vitamins (By mouth), Depression (GEN), Pre-eclampsia and Eclampsia (DC), Bleeding (DC), OB D&C - [facility], OB Food/Drug Interaction Guide, Opioid Safety, OB Home Care, OB Proud Parent Packet, OB Vaginal Deliveries - [facility] Activity Restrictions/Additional Instructions: Pelvic rest for 6 weeks, no heavy lifting for 6 weeks, 6-week visit with Dr. Hurtado Discharge Attestations FIELD PROPERTY LOSS SPECIALIST Time Spent in Discharge Care*: greater than 30 min Coding Level of Care Code Acute Lean Coach for Angeles Marte
[2021-07-24] MEDS: medroxyprogesterone 150 mg/ml SDV 1 mL IM (11:41)
[2021-07-24 11:50] VITALS: BP 105/52; BP 105/64; PULSE 66; PULSE 84; RESP 16; TEMP 36.5; TEMP 36.7
== END 2021-07-24 12:05 | disposition home or self-care (01) | DRG 805 ==
LOC: OPOB 22:34 → OBGYN 22:34
PROVIDERS: Admitting Provider Obstetrics & Gynecology; Visit Provider Obstetrics & Gynecology
DX: O99.824 Streptococcus B carrier state complicating childbirth (principal); U07.1 COVID-19; Z37.0 Single live birth; O98.513 Other viral diseases complicating pregnancy, third trimester; Z3A.39 39 weeks gestation of pregnancy
CPT/HCPCS: 36415; 51702; 59409; 85025; 85027; 96372; J0290; J1050; J2795

== ENCOUNTER → 2022-07-05 12:54 | Outpatient (BNVA) | payer MEDICAID, SELFPAY | PROVIDERS: Visit Provider Obstetrics & Gynecology | DX: Z30.011 Encounter for initial prescription of contraceptive pills (principal) | CPT/HCPCS: 81025 ==

== ENCOUNTER → 2022-08-30 14:56 | Outpatient (BNVA) | payer MEDICAID, SELFPAY | PROVIDERS: Visit Provider Internal Medicine | DX: R76.8 Other specified abnormal immunological findings in serum (principal); L40.9 Psoriasis, unspecified | CPT/HCPCS: 36415; 72040; 72202; 80053; 81001; 82306; 82550; 82607; 82728; 82784; 83516; 83540; 83735; 84439; 84443; 85025; 85651; 86003; 86008; 86140; 86160; 86162; 86200; 86235; 86255; 86376; 86431; 86704; 86803; 87340 ==

== ENCOUNTER 2022-10-13 04:48 | Emergency (ER) | payer OTHER, SELFPAY ==
--- NOTE | 2022-10-13 05:10 | ED_ITS ---
[facility] - General Adult General: Stated complaint: needle stick Time Seen by Provider: 10/13/22 04:57 Source: patient Mode of arrival: ambulatory Limitations: no limitations History of Present Illness: 22-year-old female who was in [facility] had a needlestick injury to her right index finger tonight at 3 AM. She denies any bleeding denies any pain she is here on Workmen's Comp. Associated symptoms: Deny rash Review of Systems Musc: Denies: extremity pain Skin/Breast: Denies: rash PFSH ED PFSH: Medical History Anxiety and depression Diagnosed at the age of 13 and has been on and off different medications in the past. Was on Prozac and BuSpar prior to the start of the and self discontinued the Prozac and is currently just on BuSpar. This was being managed by her primary care provider. She does not have a therapist or psychiatrist. Cystic fibrosis carrier No pertinent past medical history Denies diabetes, asthma, hypertension, seizures, DVT/PE. PCP: Norah Richard Surgical History No pertinent past surgical history Family History Denies family history of Colon cancer Ovarian cancer Diabetes Heart disease Hypercholesteremia Breast cancer Hypertension Uterine cancer Thyroid disease Stroke Social History Smoking and tobacco status: former smoker Female Reproductive History: Date of last menstrual period: 10/20/20 Physical Exam Const: COMMON NORMALS: no acute distress and patient oriented x3 HENMT: COMMON NORMALS: atraumatic HEAD & SCALP: atraumatic Eye: COMMON NORMALS: conjunctivae normal CONJUNCTIVA: Yes conjunctivae normal Chest: COMMONS NORMALS: normal inspection of the chest Resp: COMMON NORMALS: normal respiratory effort GI: INSPECTION: Yes normal to inspection Extremity: COMMON NORMALS: normal to inspection Neuro: COMMON NORMALS: patient oriented x3 Psych: COMMON NORMALS: mental status grossly normal Skin: COMMON NORMALS: no rashes or lesions noted GENERAL SKIN EXAM: no rashes or lesions noted [facility] - General Adult Medical Decision Making Patient presents with needlestick injury to right index finger she has no bleeding at this time she is well-appearing she is stable for discharge. Discharge Plan Discharge Patient Disposition: Home Clinical Impression: Needlestick injury accident Condition: Stable Prescriptions: No Action levonorgestrel-ethinyl estrad [Aviane] 0.1-20 mg-mcg tablet 1 tab PO DAILY Qty: 84 1RF Discharge Orders: Discharge ED (Routine); Ordered 10/13/22 Ordered By: Janis Brown Discharge Diet: Advance as tolerated Discharge Activity: Resume usual activity Patient Instructions: Needle Stick Injuries (ED) Coding Level of Care Code ED [facility] Consultant for Angeles Marte
[2022-10-13 05:45] LABS: HIV 1 & 2 Antigen Non-Reactive (Non-Reactiv)
[2022-10-13 05:46] LABS: HIV 1 & 2 Antibody Non-Reactive (Non-Reactiv)
[2022-10-13 05:56] LABS: Hepatitis A Antibody IgM Non-Reactive (Nonreactive); Hepatitis B Core AB, Total Non-Reactive (Nonreactive); Hepatitis B Surface Antigen Non-Reactive (Nonreactive)
[2022-10-13 05:57] LABS: Hepatitis B Surface AB > 1000.0 (11.5-1000)
[2022-10-13 06:02] LABS: Hepatitis C Virus Antibody Non-Reactive (Nonreactive)
== END 2022-10-13 05:22 | disposition home or self-care (01) ==
PROVIDERS: Emergency Provider Emergency Medicine
DX: S61.230A Puncture wound without foreign body of right index finger without damage to nail, initial encounter (principal); W46.0XXA Contact with hypodermic needle, initial encounter; Y92.239 Unspecified place in hospital as the place of occurrence of the external cause; Y99.0 Civilian activity done for income or pay
CPT/HCPCS: 86705; 86706; 86709; 86803; 87340; 87806; 99283

== ENCOUNTER → 2022-11-23 08:30 | Outpatient (BNVA) | payer MEDICAID, SELFPAY | PROVIDERS: Visit Provider Internal Medicine | DX: R76.8 Other specified abnormal immunological findings in serum (principal); R53.83 Other fatigue; R21 Rash and other nonspecific skin eruption; R00.2 Palpitations; R51.9 Headache, unspecified | CPT/HCPCS: 99214 ==

== ENCOUNTER → 2022-12-10 10:13 | Outpatient (BNVA) | payer OTHER, MEDICAID, SELFPAY | PROVIDERS: Visit Provider Emergency Medicine | DX: J02.9 Acute pharyngitis, unspecified (principal) | CPT/HCPCS: 87071; 87880 ==

== ENCOUNTER 2024-05-06 19:23 | Emergency (ER) | payer OTHER, MEDICAID, SELFPAY ==
[2024-05-06 19:36] VITALS: BP 152/78; PULSE 63; RESP 14; TEMP 36.9; O2SAT 94; BMI 20.2
--- NOTE | 2024-05-06 20:27 | W.ED.SKABFB ---
HPI - Skin/Abscess/Foreign Bdy General: Chief complaint: Skin/Abscess/Foreign Body Stated complaint: cellulitis in r leg Time Seen by Provider: 05/06/24 19:51 Source: patient Mode of arrival: ambulatory Limitations: no limitations History of Present Illness: Patient presents emergency department today for continued issues with a contact dermatitis on her lower extremities. Patient reports that about a week and a half ago she started developing a rash on her lower extremities. She states she and her have been doing some yard work but, she did not get out in the brush. Her had a similar rash but, hers did not develop until about a week and a half ago. Patient was seen and evaluated for poison roopa and was treated with steroids. She states she got a steroid shot and 5 days worth of medication. She had very little improvement of her rash per her report and is concerned that she is starting to get some swelling in her right leg. She is trying not to scratch and itch it but, has been scratching at the area and is concerned it may be developing an infection. She has never had MRSA. No reports of respiratory distress. No previous reaction similar in the past. Review of Systems General: Reports: 10 or more systems reviewed and unremarkable except in HPI and below PFSH ED PFSH: Medical History Psychiatric care Anxiety and depression Diagnosed at the age of 13 and has been on and off different medications in the past. Was on Prozac and BuSpar prior to the start of the and self discontinued the Prozac and is currently just on BuSpar. This was being managed by her primary care provider. She does not have a therapist or psychiatrist. Cystic fibrosis carrier No pertinent past medical history Denies diabetes, asthma, hypertension, seizures, DVT/PE. PCP: Norah Richard Surgical History No pertinent past surgical history Family History Denies family history of Colon cancer Ovarian cancer Diabetes Heart disease Hypercholesteremia Breast cancer Hypertension Uterine cancer Thyroid disease Stroke Social History Smoking and tobacco/nicotine status: former use of tobacco/nicotine Physical Exam Const: COMMON NORMALS: no acute distress, average body habitus and patient oriented x3 HENMT: COMMON NORMALS: normocephalic, atraumatic, hearing grossly normal bilaterally, Normal external nose present and moist oral mucous membranes HEAD & SCALP: normocephalic and atraumatic NOSE: Normal external nose present Eye: COMMON NORMALS: Equal, round and reactive pupils present, EOMs intact bilaterally and conjunctivae normal CONJUNCTIVA: Yes conjunctivae normal PUPIL: Yes Equal, round and reactive pupils present Neck/C-Spine: COMMON NORMALS: no JVD Lymph: LYMPHATIC: no lymphadenopathy noted Resp: COMMON NORMALS: normal respiratory effort, No retractions and No use of accessory muscles Cardio: COMMON NORMALS: no JVD, regular rate and regular rhythm RATE: regular rate RHYTHM: regular rhythm GI: COMMON NORMALS: Normal to inspection, nondistended, normoactive bowel sounds present : COMMON NORMALS: Yes no CVA tenderness BLADDER/KIDNEY EXAM: Yes no CVA tenderness Back/Pelvis: COMMON NORMALS: no CVA tenderness and thoraco-lumbar ROM normal Extremity: COMMON NORMALS: normal to inspection, full ROM and capillary refill normal Neuro: COMMON NORMALS: patient oriented x3 Psych: COMMON NORMALS: mental status grossly normal, Normal thought process present, cooperative, normal affect and activity/motor behavior normal THOUGHT PROCESS: Normal thought process present Skin: NARRATIVE SKIN EXAM: Patient has a rash consistent to a contact dermatitis from something similar to poison roopa noted on her lower extremities bilaterally. It is also accumulated behind the knees bilaterally and up into the medial thighs. Face is spared. Comprised of small, erythematous spots. Significant excoriations noted across the lower extremities with erythematous base noted throughout. Patient does have edema noted in the right lower extremity with sock line visible when pulled down. No pitting or active draining. Course Vital Signs: Vital signs: Vital Signs Temperature 98.5 F 05/06/24 19:36 Pulse Rate 63 05/06/24 19:36 Respiratory Rate 14 05/06/24 19:36 Blood Pressure 152/78 05/06/24 19:36 Pulse Oximetry 94 05/06/24 19:36 MDM - Skin/Abscess/Foreign Bdy Medicial Decision Making Patient presents today for continued issues of a contact dermatitis on her lower extremities. It does appear consistent with contact dermatitis suspicious for a poison roopa, poison oak, etc. There is some confluent erythema developing on the shins and patient has significant excoriation hauser noted. Due to her concerns for developing infection we will start treatment with antibiotics. She has never had MRSA so we will treat with Keflex at this time. Patient may have a somewhat refractory case of contact dermatitis requiring a longer treatment course of steroids than just 5 days. I did discuss this with her. We will start back on steroids and encouraged continued antihistamines and topical lotions for comfort. I am giving her a couple days off so she can keep her leg up and elevated as she is starting to develop some swelling in the right lower extremity. I encouraged her to have a follow-up appointment later in the week with her primary care doctor to make sure she is showing signs of improvement. However, acute worsening should be seen and reevaluated again. Differential Diagnosis Likely cellulitis and contact dermatitis; Unlikely abscess of skin or subcutaneous tissue, viral exanthem, urticaria, herpes zoster, eczema, insect bites or impetigo No radiology studies performed this visit Discharge Plan Discharge Patient Disposition: Home Clinical Impression: Cellulitis, Contact dermatitis Condition: Stable Prescriptions: New prednisone 20 mg tablet See Rx Instructions .ROUTE .COMPLEX 14 Days Qty: 37 0RF Rx Instructions: take 4 tabs daily for 4 days, then 3 tabs daily for 4 days. Then take 2 tabs daily for 3 days, then 1 tab daily until gone. cephalexin 500 mg capsule 500 mg PO Q6H 7 Days Qty: 28 0RF No Action levonorgestrel-ethinyl estrad [Aviane] 0.1-20 mg-mcg tablet 1 tab PO DAILY Qty: 84 3RF alprazolam [Xanax] 0.25 mg tablet 0.25 mg PO DAILY PRN Rx Instructions: # 15. hydroxyzine pamoate [Vistaril] 25 mg capsule 25 mg PO BID PRN venlafaxine [Effexor XR] 75 mg capsule,extended release 24hr 75 mg PO DAILY Qty: 30 1RF Discharge Orders: Discharge ED (Routine); Ordered 05/06/24 Ordered By: Mirian Dotson Referrals: Amy Wallace, BRITTA [Primary Care Provider] - Discharge Diet: Usual diet Discharge Activity: Increase activity as tolerated Patient Instructions: Contact Dermatitis (ED), Poison Roopa (ED) Activity Restrictions/Additional Instructions: Examination today shows continued findings of a contact dermatitis. As we discussed, there are some people who just require a longer treatment course for contact dermatitis such as poison roopa. For that reason I am going to get you started back on steroids. I encourage you to take a capful of MiraLAX once or twice a day to help get your bowels going again. I am also going to start you on some antibiotics to prevent any continued spreading of skin infection from scratching or dry skin which is often accompanied by these contact dermatitis. Is very important that you keep the skin soft and moisturized so encouraged application of fragrance free lotion to the areas of rash. Keep your legs up and elevated to help with swelling. You can also apply cool compresses to your legs to help with itching. I recommend seeing your primary care doctor later in the week for an overall recheck to make sure signs of rash are improved. However, if you develop any difficulty breathing, swelling of your face, tongue, lips, or fevers you should be seen and reevaluated sooner. Stand Alone Forms: Work/School Release Coding Level of Care Code ED Customer Advocate for Angeles Marte
[2024-05-06] MEDS: cephALEXin 500 mg Capsule PO (20:41)
[2024-05-06] MEDS: dexamethasone 10 mg/mL INJ IM (20:42)
== END 2024-05-06 20:56 | disposition home or self-care (01) ==
PROVIDERS: Emergency Provider Physician Assistant; PCP Nurse Practitioner Family
DX: L03.115 Cellulitis of right lower limb (principal); L25.9 Unspecified contact dermatitis, unspecified cause; Z87.891 Personal history of nicotine dependence
CPT/HCPCS: 96372; 99284; J1100

== ENCOUNTER → 2024-12-19 11:29 | Outpatient (BNVA) | payer OTHER, MEDICAID, SELFPAY | PROVIDERS: PCP Nurse Practitioner Family; Visit Provider Nurse Practitioner Women's Health | DX: Z00.00 Encounter for general adult medical examination without abnormal findings (principal) | CPT/HCPCS: 88175 ==

== ENCOUNTER → 2025-01-28 12:33 | Outpatient (BNVA) | payer OTHER, MEDICAID, SELFPAY | PROVIDERS: PCP Nurse Practitioner Family | DX: J02.9 Acute pharyngitis, unspecified (principal) | CPT/HCPCS: 87071; 87880 ==

== ENCOUNTER → 2025-01-30 12:53 | Outpatient (BNVA) | payer OTHER, MEDICAID, SELFPAY | PROVIDERS: PCP Nurse Practitioner Family; Visit Provider Obstetrics & Gynecology | DX: R87.612 Low grade squamous intraepithelial lesion on cytologic smear of cervix (LGSIL) (principal) | CPT/HCPCS: 81025; 88305 ==

== ENCOUNTER → 2025-04-29 10:45 | Outpatient (BNVA) | payer OTHER, MEDICAID, SELFPAY | PROVIDERS: PCP Nurse Practitioner Family; Visit Provider Registered Nurse Neonatal Intensive Care | DX: J02.9 Acute pharyngitis, unspecified (principal) | CPT/HCPCS: 87070; 87880 ==

== ENCOUNTER → 2025-05-10 17:31 | Outpatient (BNVA) | payer OTHER, MEDICAID, SELFPAY | PROVIDERS: PCP Nurse Practitioner Family | DX: J02.9 Acute pharyngitis, unspecified (principal) | CPT/HCPCS: 87880 ==

== ENCOUNTER → 2025-07-30 13:01 | Outpatient (BNVA) | payer OTHER, SELFPAY | PROVIDERS: PCP Nurse Practitioner Family; Visit Provider Obstetrics & Gynecology | DX: N89.8 Other specified noninflammatory disorders of vagina (principal) | CPT/HCPCS: 87255 ==